=== PATIENT | female | born 1985 | race Two or more races ===

== ENCOUNTER 2018-09-29 15:48 | Inpatient (IN) | payer OTHER ==
[~2018-09-29] VITALS: Ht 157.5 cm; Wt 74.4 kg
[2018-09-29 15:56] VITALS: Ht 157.5 cm; Wt 74.4 kg
[2018-09-29 18:37] LABS: BASOPHIL % 0.4 % (0-2); PLATELET COUNT 221 x10^3mcL (130-400); RED CELL DISTRIBUTION WIDTH 12.8 % (11.5-14.5)
[2018-09-29 18:47] LABS: CARBON DIOXIDE 25.3 mmol/L (21-32); CHLORIDE SERUM 103 mmol/L (98-107); CREATININE SERUM 0.8 mg/dL (0.6-1.0); GFR1 > 60 mL/min; GLUCOSE SERUM 111 mg/dL (74-106); POTASSIUM SERUM 3.5 mmol/L (3.5-5.1); SODIUM SERUM 136 mmol/L (136-145)
[2018-09-29 18:51] LABS: ALBUMIN 3.9 g/dL (3.4-5.0); ALKALINE PHOSPHATASE 89 U/L (46-116); ALT/SGPT 27 U/L (14-59); AST/SGOT 20 U/L (15-37); BILIRUBIN TOTAL 0.3 mg/dL (0.20-1.00); TOTAL PROTEIN, SERUM 7.5 g/dL (6.4-8.2)
[2018-09-29 19:58] LABS: MAGNESIUM 1.8 mg/dL (1.8-2.4); PHOSPHOROUS 2.3 mg/dL (2.5-4.9)
[2018-09-29 22:58] VITALS: BP 124/76
[2018-09-30 05:28] VITALS: BP 106/56
[2018-09-30 05:49] LABS: microscopic required? NO
[2018-09-30 06:47] LABS: UA SPECIFIC GRAVITY 1.025 (1.005-1.035); urine erythrocyte NEGATIVE (NEGATIVE)
[2018-09-30 06:52] LABS: BASOPHIL % 0.2 % (0-2); PLATELET COUNT 198 x10^3mcL (130-400); RED CELL DISTRIBUTION WIDTH 13.1 % (11.5-14.5)
[2018-09-30 07:05] LABS: CALCIUM 8.3 mg/dL (8.5-10.1); CARBON DIOXIDE 23.5 mmol/L (21-32); CHLORIDE SERUM 105 mmol/L (98-107); CREATININE SERUM 0.8 mg/dL (0.6-1.0); GFR1 > 60 mL/min; GLUCOSE SERUM 128 mg/dL (74-106); MAGNESIUM 1.7 mg/dL (1.8-2.4); PHOSPHOROUS 3.5 mg/dL (2.5-4.9); POTASSIUM SERUM 3.6 mmol/L (3.5-5.1); SODIUM SERUM 136 mmol/L (136-145)
[2018-09-30 09:00] VITALS: BP 118/70
[2018-09-30 17:01] VITALS: BP 102/69; BP 102/72
[2018-09-30 21:03] VITALS: BP 99/55
[2018-10-01 05:48] VITALS: BP 106/70
[2018-10-01 06:27] LABS: BASOPHIL % 0.3 % (0-2); PLATELET COUNT 175 x10^3mcL (130-400); RED CELL DISTRIBUTION WIDTH 13.2 % (11.5-14.5)
[2018-10-01 06:31] LABS: CALCIUM 8.1 mg/dL (8.5-10.1); CARBON DIOXIDE 24.3 mmol/L (21-32); CHLORIDE SERUM 106 mmol/L (98-107); CREATININE SERUM 0.7 mg/dL (0.6-1.0); GFR1 > 60 mL/min; GLUCOSE SERUM 89 mg/dL (74-106); MAGNESIUM 1.8 mg/dL (1.8-2.4); PHOSPHOROUS 3.3 mg/dL (2.5-4.9); POTASSIUM SERUM 3.5 mmol/L (3.5-5.1); SODIUM SERUM 140 mmol/L (136-145)
[2018-10-01 10:00] VITALS: BP 108/55
[2018-10-01 17:49] VITALS: BP 101/54
[2018-10-01 21:18] VITALS: BP 103/53
[2018-10-02 06:02] VITALS: BP 110/67
[2018-10-02 06:21] LABS: BASOPHIL % 0.4 % (0-2); PLATELET COUNT 159 x10^3mcL (130-400)
[2018-10-02 06:33] LABS: CHLORIDE SERUM 107 mmol/L (98-107); CREATININE SERUM 0.7 mg/dL (0.6-1.0); GFR1 > 60 mL/min; GLUCOSE SERUM 81 mg/dL (74-106); MAGNESIUM 1.8 mg/dL (1.8-2.4); PHOSPHOROUS 2.9 mg/dL (2.5-4.9); POTASSIUM SERUM 3.6 mmol/L (3.5-5.1); SODIUM SERUM 139 mmol/L (136-145)
[2018-10-02 09:05] VITALS: BP 121/74
[2018-10-02 11:00] VITALS: BP 117/67
[2018-10-02 17:24] VITALS: BP 109/67
[2018-10-02 21:02] VITALS: BP 112/62
[2018-10-03 06:00] VITALS: BP 111/69
[2018-10-03 06:13] LABS: BASOPHIL % 0.3 % (0-2); PLATELET COUNT 176 x10^3mcL (130-400); RED CELL DISTRIBUTION WIDTH 12.9 % (11.5-14.5)
[2018-10-03 06:26] LABS: CALCIUM 8.1 mg/dL (8.5-10.1); CARBON DIOXIDE 25.7 mmol/L (21-32); CHLORIDE SERUM 107 mmol/L (98-107); CREATININE SERUM 0.6 mg/dL (0.6-1.0); GFR1 > 60 mL/min; GLUCOSE SERUM 97 mg/dL (74-106); MAGNESIUM 1.9 mg/dL (1.8-2.4); PHOSPHOROUS 3.1 mg/dL (2.5-4.9); POTASSIUM SERUM 4.2 mmol/L (3.5-5.1); SODIUM SERUM 140 mmol/L (136-145)
[2018-10-03 09:28] VITALS: BP 107/68
[2018-10-03 17:28] VITALS: BP 114/48
[2018-10-03 20:58] VITALS: BP 104/64
[2018-10-04 05:25] VITALS: BP 103/62
[2018-10-04 06:36] LABS: CALCIUM 8.5 mg/dL (8.5-10.1); CARBON DIOXIDE 28.1 mmol/L (21-32); CHLORIDE SERUM 103 mmol/L (98-107); CREATININE SERUM 0.8 mg/dL (0.6-1.0); GFR1 > 60 mL/min; GLUCOSE SERUM 82 mg/dL (74-106); MAGNESIUM 1.8 mg/dL (1.8-2.4); PHOSPHOROUS 3.5 mg/dL (2.5-4.9); POTASSIUM SERUM 3.9 mmol/L (3.5-5.1); SODIUM SERUM 136 mmol/L (136-145)
[2018-10-04 06:41] LABS: BASOPHIL % 0.4 % (0-2); PLATELET COUNT 188 x10^3mcL (130-400); RED CELL DISTRIBUTION WIDTH 13.3 % (11.5-14.5)
[2018-10-04 08:37] VITALS: BP 109/77
[2018-10-04 15:36] VITALS: BP 104/62
[2018-10-04 21:06] VITALS: BP 96/59
[2018-10-05 05:35] VITALS: BP 108/62
[2018-10-05 08:17] VITALS: BP 113/73
[2018-10-05] MEDS ORDERED: NORCO1 TA2 PO (10:44)
[2018-10-05] MEDS ORDERED: FLE10 PO (10:45)
[2018-10-05 11:02] VITALS: BP 113/73
== END 2018-10-05 13:32 | disposition home or self-care (01) | DRG 313 ==
LOC: ED 15:48 → MU 19:07
PROVIDERS: Emergency Medicine; Internal Medicine; Podiatrist Foot & Ankle Surgery; ADMIT General Practice
PROC: 0QSG04Z Reposition Right Tibia with Internal Fixation Device, Open Approach (ICD-10-PCS; principal; 2018-09-30 11:30)
PROC: 0QW Lower Bones, Revision (ICD-10-PCS; 2018-10-02)
DX: S82.851A Displaced trimalleolar fracture of right lower leg, initial encounter for closed fracture (principal); D64.9 Anemia, unspecified; D72.828 Other elevated white blood cell count; R73.03 Prediabetes; W03.XXXA Other fall on same level due to collision with another person, initial encounter; Y93.51 Activity, roller skating (inline) and skateboarding; Y92.331 Roller skating rink as the place of occurrence of the external cause; Y99.8 Other external cause status; Z90.710 Acquired absence of both cervix and uterus; Z90.49 Acquired absence of other specified parts of digestive tract; Z98.891 History of uterine scar from previous surgery
CPT/HCPCS: 76001; 83880; 90715; 94150; 97110-GP; 97112-GP; 97116-GP; 97530-GP; C1713; J0690; J1170; J1644; J1885; J2175; J2250; J2270; J3010; J3490; J7030; Q0092